=== PATIENT | male | born 1950 | race Caucasian/White ===

== ENCOUNTER 2020-09-13 08:34 | Emergency (ER) | payer OTHER ==
[~2020-09-13] VITALS: Ht 177.8 cm; Wt 77.1 kg
[2020-09-13] MEDS ORDERED: VALSARTAN160 MG PO (08:47)
[2020-09-13] MEDS ORDERED: LEVOTHYROXINE50 MC1 PO (08:47)
[2020-09-13] MEDS ORDERED: HYDROCHLOROTHIA25 M1 PO (08:47)
[2020-09-13] MEDS ORDERED: OMEPRAZOLE40 MG PO (08:48)
[2020-09-13] MEDS ORDERED: ACYCLOVIR 800800 MG PO (08:48)
[2020-09-13] MEDS ORDERED: FISHOIL PO (08:48)
[2020-09-13] MEDS ORDERED: ASA81BEC PO (08:49)
[2020-09-13] MEDS ORDERED: SUPER THERAVIT1 EACH PO (08:49)
[2020-09-13 09:30] VITALS: BP 150/81
== END 2020-09-13 09:30 | disposition home or self-care (01) ==
LOC: ER 08:34
DX: S81.812A Laceration without foreign body, left lower leg, initial encounter (principal); F12.90 Cannabis use, unspecified, uncomplicated; I10 Essential (primary) hypertension; K21.9 Gastro-esophageal reflux disease without esophagitis; E03.9 Hypothyroidism, unspecified; Z79.899 Other long term (current) drug therapy; Z79.82 Long term (current) use of aspirin; W25.XXXA Contact with sharp glass, initial encounter; Y93.89 Activity, other specified; Y92.89 Other specified places as the place of occurrence of the external cause; Y99.9 Unspecified external cause status